=== PATIENT | female | born 1980 | race Two or more races ===

== ENCOUNTER 2025-02-13 18:06 | Emergency (ER) | payer OTHER ==
[~2025-02-13] VITALS: Ht 157.5 cm; Wt 58.4 kg
--- NOTE | 2025-02-13 19:08 | ED.PDOC ---
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 Chief Complaint: Post Exposure Time Seen by MD: 18:50 Reviewed Notes: Nurses Notes, Medications, Allergies Allergies: Coded Allergies: NO KNOWN ALLERGIES (Unverified , 02/13/25) Information Source: Patient Mode of Arrival: Ambulatory Past Medical History PAST MEDICAL HISTORY: Denies Surgical History: Denies all surgeries RESERVATION AGENT History: No Pertinent RESERVATION AGENT History Family History Family History: Reviewed,noncontributory to illness Social History Smoker: Non-Smoker Alcohol: Denies ETOH Use Drugs: Denies Drug Use All Other Systems: Reviewed and Negative (see hpi) Physical Exam General Appearance: No Apparent Distress, Normal HEENT: Pharynx Normal Neck: Full Range of Motion, Non-Tender Respiratory: Lungs Clear, No Respiratory Distress, Normal Breath Sounds Cardiovascular: No Edema, No JVD, No Murmur, No Gallop, Normal Peripheral Pulses, Regular Rate/Rhythm Breast Exam: Deferred Gastrointestinal: No Organomegaly, Non Tender, Soft Genitalia: Deferred Pelvic: Deferred Rectal: Deferred Extremities: Normal capillary refill, Normal inspection, Normal range of motion, No pedal edema Musculoskeletal : Apperance: Normal Neurologic: Alert, project development coordinator II-XII nml as Tested, No Motor Deficits, Normal Affect, Normal Mood, No Sensory Deficits Cerebellar Function: Normal Reflexes: NOT DONE Skin: Dry, Normal Color, Warm, Other (No noted wounds on thumbs or fingers or hand, healed) Lymphatic: No Adenopathy Was a procedure done? Was a procedure done?: No Differential Diagnosis (EXP) Differential Diagnosis: Body fluid exposure, Infect. Disease exposure X-Ray, Labs, Meds, VS Vital Signs Date Time Temp Pulse Resp B/P (MAP) Pulse Ox O2 Delivery O2 Flow Rate FiO2 02/13/25 18:10 98.7 69 18 132/97 98 98.7 X-Ray, Labs, Meds, VS Comment Baseline exposure panel drawn. Advised patient to follow up with her employee health in several days to discuss results. Advised to return to the ER if any concerns Time of 1ST Reevaluation: 19:07 Reevaluation 1ST: Unchanged Time of 2ND Reevaluation: 19:13 Reevaluation 2ND: Improved Patient Education/Counseling: Diagnosis, Treatment, Prognosis, Need For Follow Up Family Education/Counseling: No Family Present Departure 1 Departure Time of Disposition: 19:14 Impression: Primary Impression: Needlestick injury accident with exposure to body fluid Disposition: 01 HOME / SELF CARE / HOMELESS Condition: Stable Discharged With: Self Critical Care Note Critical Care Time?: No Stability Stability form required: KOFI Emmanuel Feb 13, 2025 19:08
[2025-02-13 19:17] VITALS: BP 132/97; PULSE 69; RESP 18; TEMP 98.7; O2SAT 98
[2025-02-14 10:04] LABS: Hepatitis B Surface Antigen Negative (Negative)
== END 2025-02-13 19:25 | disposition home or self-care (01) ==
LOC: ER 18:06
DX: T75.89XA Other specified effects of external causes, initial encounter (principal); Z77.21 Contact with and (suspected) exposure to potentially hazardous body fluids; W46.0XXA Contact with hypodermic needle, initial encounter; Y93.89 Activity, other specified; Y92.89 Other specified places as the place of occurrence of the external cause; Y99.0 Civilian activity done for income or pay
CPT/HCPCS: 36415; 86703; 86706; 86803; 87340